=== PATIENT | female | born 1965 | race Caucasian/White ===

== ENCOUNTER 2023-02-23 15:24 | Outpatient (REF) | payer MEDICAID, SELFPAY | END 2023-02-23 15:25 | disposition home or self-care (01) | LOC: HO.MANLNP 15:24 | PROVIDERS: Visit Provider Physician Assistant | DX: R07.0 Pain in throat (principal) | CPT/HCPCS: 87070 ==

== ENCOUNTER 2023-10-06 08:05 | Outpatient (REF) | payer OTHER, SELFPAY ==
[2023-10-06 13:20] LABS: MANUAL DIFF FLAG NO
[2023-10-06 13:22] LABS: Basophils Absolute Auto 0.1 X10*3/uL (0.0-0.2); Basophils Percent Auto 1.2 % (0-2); Eosinophils Absolute Auto 0.2 X10*3/uL (0.0-0.4); Eosinophils Percent Auto 5.3 % (0-4); Hematocrit 38.6 % (37.0-47.0); Hemoglobin 12.4 g/dl (12.0-16.0); Imm Gran Abs Auto 0.01 X10*3/uL (0.00-0.03); Imm Gran Pct Auto 0.2 % (0.0-0.4); Lymphocytes Absolute Auto 1.9 X10*3/uL (1.2-4.9); Lymphocytes Percent Auto 45.5 % (20-40); Mean Corpuscular HGB Conc 32.1 g/dl (31.0-35.0); Mean Corpuscular Volume 93.2 fL (80.0-98.0); Monocytes Absolute Auto 0.4 X10*3/uL (0.1-1.2); Monocytes Percent Auto 9.7 % (2-11); Neutrophils Absolute Auto 1.6 x10*3/uL (2.0-8.3); Neutrophils Percent Auto 38.1 % (45-73); Platelet Count 274 X10*3/uL (160-400); Red Blood Count 4.14 X10*6/uL (4.20-5.50); Red Cell Distribution Width 13.2 % (11.0-16.0); White Blood Count 4.1 X10*3/uL (4.8-10.8)
[2023-10-06 14:21] LABS: Alanine Aminotransferase 18 U/L (0-31); Albumin Level 4.1 g/dL (3.5-5.0); Alkaline Phosphatase 56 U/L (39-117); Anion Gap 11 (12-20); Aspartate Amino Transferase 21 U/L (5-31); Bilirubin Total 0.5 mg/dL (0.0-1.0); Blood Urea Nitrogen 11 mg/dL (9-16); Calcium 9.1 mg/dL (8.4-10.2); Carbon Dioxide 25 mmol/L (22-29); Chloride 106 mmol/L (96-108); Cholesterol 195 mg/dL (<200); Estimated Glomerular Filt Rate > 60; Glucose Random 90 mg/dL (60-115); HDL Cholesterol 51 mg/dL (>40); LDL Cholesterol Calculated 126 mg/dL (<100); Potassium 3.8 mmol/L (3.3-5.1); Sodium 138 mmol/L (135-145); Total Protein 6.9 g/dL (6.5-8.0); Triglycerides 90 mg/dL (<150)
[2023-10-06 14:28] LABS: Free T4 (Free Thyroxine) 0.92 ng/dL (0.71-1.85); Thyroid Stimulating Hormone 2.17 uIU/mL (0.32-4.0); Vitamin D 25-OH Total 57.4 ng/mL (>30)
[2023-10-06 16:32] LABS: Estimated Average Glucose 108 mg/dL; Hemoglobin A1c % 5.4 % (<6.0)
== END 2023-10-06 08:06 | disposition home or self-care (01) ==
LOC: HO.MANLDS 08:05
PROVIDERS: Visit Provider Physician Assistant
DX: Z00.00 Encounter for general adult medical examination without abnormal findings (principal)
CPT/HCPCS: 36415; 80053; 80061; 82306; 83036; 84439; 84443; 85025

== ENCOUNTER 2023-12-14 14:07 | Outpatient (REF) | payer OTHER, SELFPAY ==
[2023-12-14 17:42] LABS: MANUAL DIFF FLAG NO
[2023-12-14 18:00] LABS: Basophils Percent Auto 0.7 % (0-2); Eosinophils Absolute Auto 0.3 X10*3/uL (0.0-0.4); Eosinophils Percent Auto 8.2 % (0-4); Hematocrit 39.6 % (37.0-47.0); Hemoglobin 13.2 g/dl (12.0-16.0); Imm Gran Abs Auto 0.01 X10*3/uL (0.00-0.03); Imm Gran Pct Auto 0.2 % (0.0-0.4); Lymphocytes Absolute Auto 1.9 X10*3/uL (1.2-4.9); Lymphocytes Percent Auto 44.4 % (20-40); Mean Corpuscular HGB Conc 33.3 g/dl (31.0-35.0); Mean Corpuscular Hemoglobin 30.2 pg (27.0-33.0); Mean Corpuscular Volume 90.6 fL (80.0-98.0); Mean Platelet Volume 9.9 fL (9.4-12.3); Monocytes Absolute Auto 0.4 X10*3/uL (0.1-1.2); Monocytes Percent Auto 10.3 % (2-11); Neutrophils Absolute Auto 1.5 x10*3/uL (2.0-8.3); Neutrophils Percent Auto 36.2 % (45-73); Platelet Count 296 X10*3/uL (160-400); Red Blood Count 4.37 X10*6/uL (4.20-5.50); Red Cell Distribution Width 13.2 % (11.0-16.0); White Blood Count 4.2 X10*3/uL (4.8-10.8)
[2023-12-14 19:13] LABS: Iron 77 mcg/dL (30-160); Percent Iron Saturation 24 % (15-50); Total Iron Binding Capacity 316 mcg/dL (228-428); Unsaturated Iron Binding 239 ug/dL
[2023-12-14 19:29] LABS: Ferritin 53 ng/mL (10-250)
== END 2023-12-14 14:08 | disposition home or self-care (01) ==
LOC: HO.MANLDS 14:07
PROVIDERS: Visit Provider Physician Assistant
DX: E61.1 Iron deficiency (principal)
CPT/HCPCS: 36415; 82728; 83540; 85025

== ENCOUNTER 2024-11-15 07:57 | Outpatient (REF) | payer OTHER, SELFPAY ==
--- OUTSIDE RECORDS SUMMARY | 2024-11-15 08:01 | XMS_ITS | Data Portability ---
Author Organization [facility], Home Service Address [address] [place] [address] Assessment No assessment recorded. Plan of Treatment Reminders Order Date Submit Date Provider Last Modified By Organization Details Last Modified Time Details Appointments ANNUAL EXAM 2025 09:00A CHANCE COATS Not available Not available Not available Lab CMP, serum or plasma 2024 025 [facility], [address] [place] [address], [id number], 10/10/2024 14:05:16 CBC w/ auto diff 2024 025 [facility], [address] [place] [address], [id number], 10/10/2024 14:05:16 lipid panel, blood 2024 025 [facility], [address] [place] [address], [id number], 10/10/2024 14:05:17 vitamin D, 25-hydrox y, total, serum 2024 025 [facility], [address] [place] [address], [id number], 10/10/2024 14:05:16 TSH + free T4, serum 2024 025 [facility], [address] [place] [address], [id number], 10/10/2024 14:05:16 hemoglobi n A1c, QN, blood 2024 025 [facility], [address] [place] [address], [id number], 10/10/2024 14:05:17 vitamin B12 + folate, serum or blood 2024 025 [facility], [address] [place] [address], [id number], 10/10/2024 14:05:17 CMP, serum or plasma 2023 024 [facility], [address] [place] [address], [id number], 10/07/2023 11:30:13 CBC w/ auto diff 2023 024 [facility], [address] [place] [address], [id number], 09/14/2023 09:33:54 lipid panel, blood 2023 024 [facility], [address] [place] [address], [id number], 10/07/2023 11:30:13 TSH + free T4, serum 2023 024 [facility], [address] [place] [address], [address], 10/07/2023 11:30:13 vitamin D, 25-hydrox y, total, serum 2023 024 [facility], [address] [place] [address], [address], 09/14/2023 09:33:54 hemoglobi n A1c, QN, blood 2023 024 [facility], [address] [place] [address], [id number], 09/14/2023 09:33:54 rapid strep group A, throat [address] [facility], [address] [facility], [address], [place], [address], 02/23/2023 15:06:01 culture, throat - oropharyn x swab done at 3:02 pm on 02/23/232022 023 [facility], [address] [facility], [place], [address], 02/24/2023 11:42:45 Referral dermatolo gist referral 2024 025 [facility], [address] [place] [address], [id number], 11/11/2024 08:22:09 physical therapist referral 2023 024 [facility], [address] [place], [address], 12/30/2023 09:13:08 Procedures None recorded. Surgeries None recorded. Imaging None recorded. Medication Orders ciclopiro x 8 % topical solution [address] [facility][id number], [address] [place], [place], [id number], 10/10/2024 13:50:10 clotrimaz ole-betam ethasone 1 %-0.05 % topical cream [address] [facility] #[id number], [address] [place], [place], [id number], 10/10/2024 13:56:22 bupropion HCl SR 200 mg tablet,12 hr sustained -release 2024 025 [facility], [address], [address], [id number], 10/10/2024 15:55:30 citalopra m 10 mg tablet 2023 024 [facility] #[id number], [address] [place], [place], [id number], 12/29/2023 09:43:43 estradiol 0.05 mg/24 hr semiweekl y transderm al patch 2023 024 [email or web address] [facility] #[id number], [address] [place], [place], [id number], 12/29/2023 09:38:57 Zithromax Z-Juvencio 250 mg tablet 2022 023 [email or web address] [facility] #[id number], [address] [place], [place], [id number], 09/14/2023 09:17:13 Patient TargetsNo targets recorded. Patient Instructions Encounter Date Encounter Id Patient Instructions Last Modified By Organization Details Last Modified Time 02/23/2023 [id number] pulse oximetry* [email or web address] Not available 02/23/2023 15:10:30 Reason for Referral Physical Therapist Referral for Inflammation of sacroiliac joint SI joint dyfunction, needs core and low back treatment plan Referring Physician: Janae Vela, Internal Medicine, Encounter Date: 12/29/2023 [employer] Person Referral for D ysplastic nevus of skin changing moles forhead with new lesion adjacent Referring Physician: Janae Vela, Internal Medicine, Encounter Date: 10/10/2024 Results Created Date Observation Date Name Description Value Unit Range Abnormal Flag Note LastModifiedBy Organization Detail LastModifiedTime 02/24/2002/23/2023 pulse oxime try* Result 98% Not Available [facility] [address] [place] [address] D, [place], [address], 02/23/2023 15:10:21 02/24/20 23 02/23/2023 rapid strep group A, throa t Strep negati ve Not Available [facility] [address] [place] [address] D, [place], [address], 02/23/2023 15:04:29 06/04/20 23 06/02/2023 MAMMO , kylee ruth, digit al, bilat eral No observ ation record ed. [email or web address] [facility] [address] [facility], [place], [address], 06/04/2023 15:32:07 Result Notes None recorded. Problems Name Problem SNOMED Code Status Onset Date Resolution Date Notes Provider Name and Address Organization Details Recorded Time Depressiv e disorder 90573968 Active 2017 Not Available [facility] 2 12:48:01 Anxiety 80299511 Active 2017 Not Available [facility] 2 12:48:01 Heartburn 09281424 Active 2017 Not Available [facility] 2 12:48:01 COVID-19 856645116 Active 2021 Alla Newberry [facility] 2 16:29:51 Pain of left knee joint 298023230802 107 Active 2021 CHANCE NUR [address] [place] [address], [address], [facility] 2 10:04:11 Headache 10494413 Active 2022 CHANCE NUR [address] [place], [address], [facility] 3 15:06:11 Pruritic rash 76894458 Active 2022 CHANCE NUR [address] [place] [address], [address], [facility] 3 16:07:01 Herpes zoster 3507905 Active 2022 CHANCE NUR [address] [place], [address], [facility] 3 09:08:58 Menopause Active 2023 CHANCE NUR [address] [place], [address], [facility] 4 09:22:11 Inflammat ion of sacroilia c joint 03381639 Active 2023 CHANCE NUR [address] [place], [address], [facility] 4 09:48:38 Onycholys is due to fungal infection of nail 374058068 Active 2024 CHANCE NUR [address] [place], [address], [facility] 5 13:49:07 Dysplasti c nevus of skin 036451906 Active 2024 CHANCE NUR [address] [place], [address], [facility] 5 13:56:52 Problem Notes None recorded. Procedures Surgical History Date Name Laterality Status Provider Name and Address Organization Details Recorded Time Appendectomy completed CHANCE NUR [address] [place], [address], [facility] 04/17/2021 12:00:20 Imaging Results Imaging Date Name Status LastModified by Organiz ation Details LastModified Time 06/02/2023 MAMMO, screening, digital, bilateral completed [email or web address] [address], [place], [address], 06/04/2023 15:32:07 Procedure Notes None recorded. Medical Equipment None Reported. Allergies No known drug allergies Medications Name Sig Start Date Stop Date Status Note LastModified by Organization Details LastModified Time celecoxib 200 mg capsule TAKE 1 CAPSULE BY MOUTH EVERY DAY active Not Available Not Available No t Available prednisone 10 mg tablet 40 mg x 2 days30 mg x 2 days20 mg x 2 days10 mg x 2 days 08/05 completed Not Available Not Available Not Available azithromyci n 250 mg tablet TAKE 2 TABLETS (500 MG) BY ORAL ROUTE ONCE DAILY FOR 1 DAY THEN 1 TABLET (250 MG) BY ORAL ROUTE ONCE DAILY FOR 4 DAYS 09/14 completed Not Available Not Available Not Available citalopram 10 mg tablet TAKE 1 TABLET BY MOUTH TWICE DAILY DIRECTED active Not Available Not Available No t Available valacyclovi r 1 gram tablet TAKE 1 TABLET BY MOUTH EVERY 8 HOURS FOR 7 DAYS 09/14 completed Not Available Not Available Not Available estradiol 0.05 mg/24 hr weekly transdermal patch active Not Available Not Available Not Available estradiol 0.05 mg/24 hr semiweekly transdermal patch APPLY 1 PATCH TOPICALLY TO THE SKIN 2 TIMES A WEEK DIRECTED 12/28 completed Not Available Not Available Not Available triamcinolo ne acetonide 0.1 % topical cream APPLY THIN LAYER TOPICALLY TO THE AFFECTED AREA TWICE DAILY 09/14 completed Not Available Not Available Not Available bupropion HCl SR 100 mg tablet,12 hr sustained-r elease TAKE 2 TABLETS BY MOUTH EVERY DAY 10/10 completed Not Available Not Available Not Available amoxicillin 500 mg tablet TAKE 1 TABLET BY MOUTH EVERY 8 HOURS FOR 4 DAYS 08/05 completed Not Available Not Available Not Available ciclopirox 8 % topical solution APPLY TO THE AFFECTED AREA(S) BY TOPICAL ROUTE ONCE DAILY PREFERABL Y AT BEDTIME OR 8 HOURS BEFORE WASHING active Not Available Not Available No t Available alprazolam 0.5 mg tablet TAKE 1/2 TO 1 TABLET NEEDED FOR INSOMNIA AT BEDTIME 04/17 completed Not Available Not Available Not Available clotrimazol e-betametha sone 1 %-0.05 % topical cream APPLY TOPICALLY TO THE AFFECTED AND SURROUNDI NG AREAS TWICE DAILY IN THE MORNING AND IN THE EVENING FOR 2 WEEKS active Not Available Not Available No t Available aspirin 81 mg chewable tablet 08/05 completed Not Available Not Available Not Available diclofenac sodium 75 mg tablet,misty yed release TAKE 1 TABLET BY MOUTH TWICE DAILY 04/17 completed Not Available Not Available Not Available progesteron e micronized 100 mg capsule active Not Available Not Available Not Available oxycodone 5 mg tablet 08/05 completed Not Available Not Available Not Available bupropion HCl SR 200 mg tablet,12 hr sustained-r elease take one tablet po qd in the AM active Not Available Not Available No t Available Climara Pro 0.045 mg-0.015 mg/24 hr transdermal patch APPLY 1 PATCH TOPICALLY TO THE SKIN 1 TIME A WEEK 10/10 completed Not Available Not Available Not Available Maxwell COVID-19 Ag Self Test kit TEST DIRECTED TODAY 08/05 completed Not Available Not Available Not Available Paxlovid 300 mg (150 mg x 2)-100 mg tablets in a dose pack TAKE 2 NIRMATREL VIR TABLETS AND 1 RITONAVIR TABLET TOGETHER BY MOUTH TWICE DAILY FOR 5 DAYS 09/14 completed Not Available Not Available Not Available Vitals Date Recorded Body height Heart rate Oxygen saturation Oxygen saturation in Arterial blood by Pulse oximetry Body temperature Systolic blood pressure Diastolic blood pressure Provider Name and Address Organization Details Last Updated DateTime 3 170.18 cm 73 /min 96 % 96 % 98.3 [degF] 102 mm[Hg] 72 mm[Hg] Jm Yoder [facility] 3 14:50:22 Date Recorded Body height Body mass index (BMI) Body weight Heart rate Oxygen saturation Oxygen saturation in Arterial blood by Pulse oximetry Systolic blood pressure Diastolic blood pressure Provider Name and Address Organization Details Last Updated DateTime 4 170.18 cm 28.8 kg/m2 14594 g 58 /min 97 % 97 % 110 mm[Hg] 68 mm[Hg] Aundrea Wood [facility] 4 09:08:37 Date Recorded Body height Body mass index (BMI) Body weight Heart rate Oxygen saturation Oxygen saturation in Arterial blood by Pulse oximetry Systolic blood pressure Diastolic blood pressure Provider Name and Address Organization Details Last Updated DateTime 4 170.18 cm 28.5 kg/m2 71816.7 3 g 71 /min 97 % 97 % 122 mm[Hg] 74 mm[Hg] Melodie Bruce [facility] 4 09:13:12 Date Recorded Body height Body mass index (BMI) Body weight Heart rate Oxygen saturation Oxygen saturation in Arterial blood by Pulse oximetry Systolic blood pressure Diastolic blood pressure Provider Name and Address Organization Details Last Updated DateTime 4 170.18 cm 27.8 kg/m2 19447.6 5 g 67 /min 99 % 99 % 116 mm[Hg] 74 mm[Hg] Melodie Bruce [facility] 4 09:40:25 Date Recorded Body height Body mass index (BMI) Body weight Heart rate Oxygen saturation Oxygen saturation in Arterial blood by Pulse oximetry Systolic blood pressure Diastolic blood pressure Provider Name and Address Organization Details Last Updated DateTime 5 170.18 cm 26.8 kg/m2 20921.3 g 57 /min 98 % 98 % 114 mm[Hg] 72 mm[Hg] Melodie Bruce [facility] 5 13:34:45 Social History Question Answer Notes LastModified by Organizat ion Details LastModified Time Tobacco Smoking Status Never Smoker [facility] N[facility] [address] [place], [address], [facility] 04/17/2021 11:48:19 What Was The Date Of Your Most Recent Tobacco Screening? 10/10/2024 [email or web address] Information not available 10/10/2024 Do You Or Have You Ever Used Any Other Forms Of Tobacco Or Nicotine? No Information not available 09/14/2023 Sex: Unknown Functional Status None recorded. Mental Status None recorded. Family History Relationship Description Onset Age of this Age Resolved Age Notes LastModified by Organization Details LastModified Time Brother Carcinoma of prostate [email or web address] Not available 2020 11:59:20 Brother Malignant tumor of pharynx [email or web address] Not available 2020 11:59:31 Medical History No medical history recorded. Gynecological HistoryNo gynecological history recorded. Obstetrics History GPAL:G 0 P 0 0 0 0 Immunizations Vaccine Type Date Status Note Provider Nam e and Address Organization Details Recorded Time COVID-19, mRNA, LNP-S, PF, 30 mcg/0.3 mL dose 1 completed Marium Gencarelle gabrielle [facility] 04/17/2021 08:34:18 COVID-19, mRNA, LNP-S, PF, 30 mcg/0.3 mL dose 1 completed Marium Gencarelle gabrielle [facility] 04/17/2021 08:34:24 COVID-19, mRNA, LNP-S, PF, 30 mcg/0.3 mL dose 1 completed CHANCE NUR [address] [place], [address], [facility] 06/22/2021 09:42:40 COVID-19, mRNA, LNP-S, PF, 30 mcg/0.3 mL dose 2 completed Alla Newberry [facility], [facility] 12/03/2021 13:37:05 influenza, unspecified formulation 2 completed Ju Madera null, [facility] 08/05/2022 09:56:18 Influenza, split virus, quadrivalent, PF 1 completed Melodie Bruce null, [facility] 12/08/2023 08:49:20 influenza, unspecified formulation 4 completed CHANCE NUR [address] [place], [address], [facility] 10/10/2024 13:38:23 Past Encounters Encounter ID Performer Location Encounter Start Date Encounter Closed Date Diagnosis/Indication Diagnosis SNOMED-CT Code Diagnosis ICD10 Code Diagnosis Note [id number] CHANCE NUR [facility] [address] [facility] [address] 04/17/2021 11:42:08 04/17/2021 16:47:04 Anxiety 62339698 F41.1 stable Depressive disorder 3548 9007 F32.9 stable Active or passive immunization 211207687 Z23 up to date Menopause 687750013 N95. 1 stable [id number] CHANCE NUR [facility] [address] [facility],[place] [address] 07/12/2021 11:19:45 07/15/2021 14:27:04 Pruritic rash 74323393 L28.2 will start with script strength medicaiton Candidal intertrigo 2661 83394 B37.2 will start on combo for topical steriod and anti-funga l [id number] CHANCE NUR [facility] [address] [facility] [address] 10/21/2021 10:12:38 10/22/2021 12:25:11 Pain of left knee joint 8522106046 47109 M25.562 will fu with XR of the knee [id number] CHANCE NUR [facility] [address] [facility] [address] [address] 08/05/2022 09:49:17 08/05/2022 11:44:38 Active or passive immunization 265416572 Z23 up to date Adult heal th examination 078501187 Z00.00 BP is excellent todayheigh t is still the same Pain of le ft knee joint 8885111353 97761 M25.562 will f/u with Dr. Ryan and start on celebrex againwould like to discuss injections (Synvisc and PT)has seen Dr. Ryan prior for her right hip [id number] CHANCE NUR [facility] [address] [facility] [address] [address] 02/23/2023 14:46:41 02/23/2023 16:26:17 Pain in throat 943530146 R07.0 agreed to rapid and send out strep Headache 89803505 R51.9 possibly related to sinuses; ?sinus infection Acute sinusitis 25469212 J01.01 will start on z pakpossibl e sinus infection with post nasal causing the sore throat Nasal congestion 2053178 0 R09.81 [id number] CHANCE NUR [facility] [address] [facility] [address] 09/14/2023 09:00:46 09/14/2023 11:28:35 Menopause 378171649 N95.1 stableneed s new patch her insurance covers Adult heal th examination 967602776 Z00.00 BP is excellent today [id number] CHANCE NUR [facility] [address] [facility] [address] [address] 12/08/2023 09:02:21 12/08/2023 10:09:35 Anxiety 25423248 F41.1 stable Depressive disorder 3548 9007 F32.9 agreed to increase up to 1.5 tablets for 15 mgcont bupropion Inflammati on of sacroiliac joint 94347115 M46.1 trial belt, continue yoga [id number] CH[facility] NUR [facility] [address] [facility] [address] [address] 12/29/2023 09:33:29 12/29/2023 16:05:38 Depression screening 886427073 Z13.31 stable Anxiety 67173886 F41.1 doing betterbupr opion seems to be helping with her motivation as well Inflammati on of sacroiliac joint 07088835 M46.1 trial tru dow yogawill set up with PT [id number] CHANCE NUR [facility] [address] [facility] [address],[place] [address] 10/10/2024 13:25:26 10/10/2024 15:08:58 Active or passive immunization 809966230 Z23 up to date Adult heal th examination 703994649 Z00.00 BP is excellent today Anxiety 62367578 F41.1 switch to just the 200 mg in the AM Onycholysi s due to fungal infection of nail 066148824 B35.1 worked well for her previously Candidal intertrigo 2661 09528 B37.2 will start on combo for topical steriod and anti-funga l Dysplastic nevus of skin 887783659 D22.39 Health Concerns Section Related Observation LastModified by Organization Detai ls LastModified Time None Recorded Concern Status LastModified by Organization Details LastModified Time None Recorded Advance Directives Directive None Recorded Payers Encounter Date Sequence Insurance Name Policy Number Policy Berrios Covered Member ID Berrios Member ID Guarantor Name 02/23/2023 1 [place] [facility] Varsha B Syed [id number] Varsha B Syed 09/14/2023 1 [employer] [id number] Varsha B Syed [id number] Varsha B Syed 12/08/2023 1 [employer] [id number] Varsha B Syed [id number] Varsha B Syed 12/29/2023 1 [employer] [id number] Varsha B Syed [id number] Varsha B Syed 10/10/2024 1 [employer] [id number] Varsha B Syed [id number] Varsha B Syed Notes Date Note Type Note Provider Name a nd Address Organization Details Recorded Time 3 text/html c/o sore throat the patient has had a sore throat for the better part of two weeksthe patient also has congestion, headache left side, constant and sore throat with redness and irritation of the back of the throat the patient reports that she hasn't been around any sick people but her kids just got back from camp which is possible they were carrying something the patient has tested COVID-19 multiple times which have all been negative the patient is here today for a rapid strep and send out swab does have a headache not responding to OTC medspossible sinus infection with just post nasal triggering the sore throat the patient agreed to start on z-pakcan stop if neededwill cont treatment if culture is positive CHANCE NUR [address] [place] [address], [address], [facility] 02/23/2023 15:16:51 4 text/html Annual WellnessReported bypatient.Diet and Nutrition:healthy diet; discussed vitamin and supplement use; discussed portion control; discussed maintaining calcium balance; discussed diet improvement Fracture Risk:no history of fractures; no recent explained fracture; no sudden unexplained fractures; no previous musculoskeletal injuries Physical Activity:exercises on a regular basis; recent increase in physical activity; good physical condition; doing [employer] work outs yoga pretty consistently as well the patient is planning to do a hiking trip in [place] Additional Lifestyle Factors:no tobacco use; drinks alcohol (mild-moderate) Depression Risk:never feels sad, empty, or tearful; no loss of interest in activities; no significant changes in weight; no sleep disturbances or insomnia; no agitation; no loss of energy; no feelings of worthlessness or guilt; no thoughts of suicide; no history of depression; no history of mood disorders Hearing:no loss of hearing Vision:no vision problems the patient has received gel shots in the left knee, the patient has bilateral knee pain, L>Rthe patient reports that she is seeing ortho the patient is working on continue to do an activity per day like yoga the patient reports that concern about weightdid does expectation for weight during menopause working on being more healthy this year and working on her mental health changed her patch out for the insurance change and more appropriate prices will adjust her dose of bupropionnoted in chart can cont celecoxib CHANCE NUR [address] [place], [address], [facility] 09/14/2023 09:51:30 4 text/html c/o SI joint pain the patient reports that she has had tenderness of her SI Jointthe patient reports that 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 and 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 been 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 a lot started back in September the patient is still getting bilaterally stiff knee joints is down to 181 pounds from 187 the patient reports she feels heavy, her body feels heavyreports she does note she is drinking more than usual, alcohol, only one drink but now on weekdays the patient feels tired, worn down, stiffthe patient reports that she has has a lack of motivation to bikethe patient reports increased irritability especially with her family sounds like she is depressed based on how she is viewing the worldnot enthused by her hobbies, doesn't have a lot of things that make her happythe patient is less likely to be social has two kids, son and daughter, two brothers and an aging mother who she is the one who takes the most care of will f/u in a few weeks to see how it went CHANCE NUR [address] [place], [address], [facility] 12/08/2023 09:50:36 4 text/html 3 week f/u the patient is feeling betterworked with her job and recognizing the depressive symptoms she has been exhibitingbeen working on the patient does not have any side effects with either the bupropion and the celexadoses work wellthe patient has switched back to her climara patch instead which seems to help quiet a bitthe patient reports that she is working with her mother and son; both having health issueswill need FMLA for her appts and for the depression; taking care of her mother the patient is still having so SI joint discomfortthe patient reports the brace did help a lot can increase the celecoxib to 400 mg for the next two or so weekswill set up with PT as well will continue on medications CHANCE NUR [address] [place], [address], [facility] 12/29/2023 10:00:06 5 text/html Annual WellnessReported bypatient.Diet and Nutrition:healthy diet; discussed vitamin and supplement use; discussed portion control; discussed maintaining calcium balance; discussed diet improvement Fracture Risk:no history of fractures; no recent explained fracture; no sudden unexplained fractures; no previous musculoskeletal injuries Physical Activity:exercises on a regular basis; recent increase in physical activity; good physical condition Additional Lifestyle Factors:no tobacco use; drinks alcohol (mild-moderate) Depression Risk:never feels sad, empty, or tearful; no loss of interest in activities; no significant changes in weight; no sleep disturbances or insomnia; no agitation; no loss of energy; no feelings of worthlessness or guilt; no thoughts of suicide; no history of depression; no history of mood disorders Hearing:no loss of hearing Vision:no vision problems pt down from 181 lbs to 171 lbs, has been doing hot yoga, just finished a 60 day course of yoga every day switch to 200 mg QD instead of split BID did well previously on the topical solution for toe fungusneeds refill of the other topical for heat rash fungal infection [facility] [place] [address] [place], [id number], [facility] 10/10/2024 14:03:48 OBGyn Episode No OBEpisode recorded.
--- OUTSIDE RECORDS SUMMARY | 2024-11-15 08:01 | XMS_ITS | Clinical Summary ---
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 Name Role Phone Unavailable Primary Care Provider Unavailabl e Social History Tobacco Use Types Packs/Day Years Used Date Smoking Tobacco: Never Assessed Comments Unknown Sex and Gender Information Value Date Recorded Sex Assigned at Not on file Legal Sex Female 12:38 AM EDT Gender Identity Not on file Sexual Orientation Not on file Plan of Treatment Health Maintenance Due Date Last Done Comments Breast Cancer Screening 1965 DTaP,Tdap,and Td Vaccines (1 - Tdap) 11/01/1982 Cervical Cancer Screening: P ap Smear 11/01/1984 Pneumococcal Vaccine: 50+ Ye ars (1 of 1 - PCV) 11/01/2013 Zoster Vaccines (1 of 2) 11/01/2013 COVID-19 Vaccine ( - 2023-2 5 season) 2024 Influenza Vaccine (Season Ended) 2025 RSV Immunization Adult Patie nts (1 - 1-dose 75+ series) 11/01/2038 HIB Vaccines Aged Out No longer eligi ble based on patient's age to complete this topic HPV Vaccines Aged Out No longer eligi ble based on patient's age to complete this topic Hepatitis A Vaccines Aged Out No long er eligible based on patient's age to complete this topic Hepatitis B Vaccines Aged Out No long er eligible based on patient's age to complete this topic IPV Vaccines Aged Out No longer eligi ble based on patient's age to complete this topic MMR Vaccines Aged Out No longer eligi ble based on patient's age to complete this topic Meningococcal ACWY Vaccine Aged Out N o longer eligible based on patient's age to complete this topic Meningococcal B Vaccine Aged Out No l onger eligible based on patient's age to complete this topic Pneumococcal Vaccine: Pediat rics (0 to 5 Years) and At-Risk Patients (6 to 64 Years) Aged Out No longer eligible b ased on patient's age to complete this topic RSV Immunization Patients Un ainsley 20 months Aged Out No longer eligible b ased on patient's age to complete this topic Varicella Vaccines Aged Out No longer eligible based on patient's age to complete this topic
[2024-11-15 13:12] LABS: MANUAL DIFF FLAG NO
[2024-11-15 13:32] LABS: Basophils Absolute Auto 0.1 X10*3/uL (0.0-0.2); Basophils Percent Auto 1.4 % (0-2); Eosinophils Absolute Auto 0.4 X10*3/uL (0.0-0.4); Eosinophils Percent Auto 7.4 % (0-4); Hematocrit 37.4 % (37.0-47.0); Hemoglobin 12.3 g/dl (12.0-16.0); Imm Gran Abs Auto 0.05 X10*3/uL (0.00-0.03); Lymphocytes Absolute Auto 1.7 X10*3/uL (1.2-4.9); Lymphocytes Percent Auto 32.2 % (20-40); Mean Corpuscular HGB Conc 32.9 g/dl (31.0-35.0); Mean Corpuscular Hemoglobin 30.3 pg (27.0-33.0); Mean Corpuscular Volume 92.1 fL (80.0-98.0); Monocytes Absolute Auto 0.4 X10*3/uL (0.1-1.2); Monocytes Percent Auto 8.6 % (2-11); Neutrophils Absolute Auto 2.5 x10*3/uL (2.0-8.3); Neutrophils Percent Auto 49.4 % (45-73); Platelet Count 266 X10*3/uL (160-400); Red Blood Count 4.06 X10*6/uL (4.20-5.50); Red Cell Distribution Width 13.5 % (11.0-16.0); White Blood Count 5.1 X10*3/uL (4.8-10.8)
[2024-11-15 13:56] LABS: Estimated Average Glucose 111 mg/dL; Hemoglobin A1C 119.5327 umol/L; Hemoglobin A1c % 5.5 % (<6.0); Total Hemoglobin (HGBA1C) 3268.9095 umol/L
[2024-11-15 14:30] LABS: Folate 7.7 ng/mL (> or = 4.0); Vitamin B12 732 pg/mL (200-900)
[2024-11-15 15:23] LABS: Alanine Aminotransferase 18 U/L (0-31); Albumin Level 4.2 g/dL (3.5-5.0); Alkaline Phosphatase 60 U/L (39-117); Anion Gap 10 (12-20); Aspartate Amino Transferase 26 U/L (5-31); Bilirubin Total 0.4 mg/dL (0.0-1.0); Blood Urea Nitrogen 18 mg/dL (9-16); Calcium 9.1 mg/dL (8.4-10.2); Carbon Dioxide 24 mmol/L (22-29); Chloride 109 mmol/L (96-108); Cholesterol 193 mg/dL (<200); Estimated Glomerular Filt Rate > 60; Glucose Random 96 mg/dL (60-115); HDL Cholesterol 56 mg/dL (>40); LDL Cholesterol Calculated 126 mg/dL (<100); Potassium 3.9 mmol/L (3.3-5.1); Sodium 139 mmol/L (135-145); Thyroid Stimulating Hormone 2.92 uIU/mL (0.32-4.0); Triglycerides 58 mg/dL (<150)
[2024-11-15 17:12] LABS: T4 Thyroxine 6.5 ug/dL (4.5-12.0)
== END 2024-11-15 07:58 | disposition home or self-care (01) ==
LOC: HO.MANLDS 07:57
PROVIDERS: Visit Provider Physician Assistant
DX: Z00.00 Encounter for general adult medical examination without abnormal findings (principal); Z13.6 Encounter for screening for cardiovascular disorders; Z13.1 Encounter for screening for diabetes mellitus
CPT/HCPCS: 36415; 80053; 80061; 82607; 82652; 82746; 83036; 84436; 84443; 85025

== ENCOUNTER 2025-01-25 09:38 | Outpatient (REF) | payer OTHER, SELFPAY ==
--- OUTSIDE RECORDS SUMMARY | 2025-01-25 10:35 | XMS_ITS | Clinical Summary ---
Author Organization [facility] it Address [address] [place] [address] Care Team Providers Care Credit Control Manager Name Role Phone Unavailable Primary Care Provider [...]
[2025-01-25 13:34] LABS: MANUAL DIFF FLAG NO
[2025-01-25 13:40] LABS: Basophils Absolute Auto 0.1 X10*3/uL (0.0-0.2); Basophils Percent Auto 1.2 % (0-2); Eosinophils Absolute Auto 0.5 X10*3/uL (0.0-0.4); Eosinophils Percent Auto 8.7 % (0-4); Hematocrit 39.8 % (37.0-47.0); Hemoglobin 13.1 g/dl (12.0-16.0); Imm Gran Abs Auto 0.01 X10*3/uL (0.00-0.03); Imm Gran Pct Auto 0.2 % (0.0-0.4); Lymphocytes Absolute Auto 2.1 X10*3/uL (1.2-4.9); Lymphocytes Percent Auto 41.1 % (20-40); Mean Corpuscular HGB Conc 32.9 g/dl (31.0-35.0); Mean Corpuscular Hemoglobin 30.8 pg (27.0-33.0); Mean Corpuscular Volume 93.4 fL (80.0-98.0); Monocytes Absolute Auto 0.5 X10*3/uL (0.1-1.2); Monocytes Percent Auto 9.5 % (2-11); Neutrophils Percent Auto 39.3 % (45-73); Platelet Count 251 X10*3/uL (160-400); Red Blood Count 4.26 X10*6/uL (4.20-5.50); Red Cell Distribution Width 13.4 % (11.0-16.0); White Blood Count 5.2 X10*3/uL (4.8-10.8)
[2025-01-25 13:59] LABS: Alanine Aminotransferase 20 U/L (0-31); Albumin Level 4.2 g/dL (3.5-5.0); Alkaline Phosphatase 57 U/L (39-117); Anion Gap 11 (12-20); Aspartate Amino Transferase 24 U/L (5-31); Bilirubin Total 0.4 mg/dL (0.0-1.0); Blood Urea Nitrogen 12 mg/dL (9-16); C Reactive Protein 0.19 mg/dL (< or = 0.50); Calcium 8.8 mg/dL (8.4-10.2); Carbon Dioxide 25 mmol/L (22-29); Chloride 106 mmol/L (96-108); Estimated Glomerular Filt Rate > 60; Glucose Random 93 mg/dL (60-115); Potassium 4.2 mmol/L (3.3-5.1); Sodium 138 mmol/L (135-145)
[2025-01-25 14:18] LABS: Erythrocyte Sedimentation Rate 13 MM/HR (0-20)
== END 2025-01-25 09:39 | disposition home or self-care (01) ==
LOC: HO.MANLDS 09:38
PROVIDERS: Visit Provider Physician Assistant
DX: N39.0 Urinary tract infection, site not specified (principal)
CPT/HCPCS: 36415; 80053; 85025; 85652; 86140